=== PATIENT | female | born 1985 | race Asian ===

== ENCOUNTER 2017-12-30 11:10 | Inpatient (IN) | payer BC ==
[2017-12-30] VITALS (29 sets, daily range): BP systolic 99–132; BP diastolic 53–87; PULSE 76–94; TEMP 97.6–98.7
[~2017-12-30] VITALS: Ht 157.6 cm; Wt 78.2 kg
[2017-12-30] MEDS ORDERED: PRENATAL1 TA7 PO (12:47)
[2017-12-30 14:51] LABS: BASO % 0.3 % (0.0-2.0); EOS # 0.1 (0.0-0.7); EOS % 0.6 % (0-4.0); GRAN # 9.5 (1.4-6.5); GRAN % 67.8 % (42.2-75.2); HEMOGLOBIN 11.8 g/dl (12.5-16.0); LYMPH # 2.9 (1.2-3.4); MEAN CELL VOLUME 86 fl (80.0-100.0); MEAN CORPUSCULAR HEMOGLOBIN 29 pg (27.0-31.0); MEAN CORPUSCULAR HGB CONC 34 g/dl (33.0-37.0); MEAN PLATELET VOLUME 8.8 fl (7.4-10.4); MONO # 1.1 (0.1-0.6); MONO % 7.9 % (1.7-9.3); PLATELET COUNT 267 K/mm3 (130-400); RED BLOOD COUNT 4.07 M/mm3 (4.10-5.30); REDCELL DISTRIBUTION WIDTH-CV 16.2 % (11.5-14.5)
[2017-12-30] MEDS ORDERED: NATURAL IRON65 MG (14:56)
[2017-12-30 14:57] LABS: HEMATOCRIT 34.9 % (37.0-47.0)
[2017-12-30] MEDS ORDERED: IRON TABLETS325 MG PO (14:57)
[2017-12-31] VITALS (81 sets, daily range): BP systolic 87–1331; BP diastolic 45–80; PULSE 76–117; TEMP 97.6–98.9
[2018-01-01 04:30] VITALS: BP 105/40; PULSE 102; TEMP 98.6
[2018-01-01 07:25] LABS: BASO % 0.2 % (0.0-2.0); EOS % 0.2 % (0-4.0); GRAN # 15.4 (1.4-6.5); GRAN % 80.7 % (42.2-75.2); LYMPH # 2.2 (1.2-3.4); LYMPH % 11.4 % (20.0-51.0); MEAN CELL VOLUME 86 fl (80.0-100.0); MEAN CORPUSCULAR HGB CONC 33 g/dl (33.0-37.0); MEAN PLATELET VOLUME 8.9 fl (7.4-10.4); MONO # 1.2 (0.1-0.6); MONO % 6.1 % (1.7-9.3); PLATELET COUNT 210 K/mm3 (130-400); RED BLOOD COUNT 3.43 M/mm3 (4.10-5.30); REDCELL DISTRIBUTION WIDTH-CV 16.4 % (11.5-14.5)
[2018-01-01 07:33] LABS: HEMATOCRIT 29.6 % (37.0-47.0); HEMOGLOBIN 9.9 g/dl (12.5-16.0); MEAN CORPUSCULAR HEMOGLOBIN 29 pg (27.0-31.0)
[2018-01-01 10:00] VITALS: BP 95/56; PULSE 94; TEMP 98.4
[2018-01-01 14:18] VITALS: BP 93/56; PULSE 82; TEMP 97.8
[2018-01-01 17:42] VITALS: BP 91/57; PULSE 81; TEMP 9.9
[2018-01-01 19:45] VITALS: BP 106/57; PULSE 87; TEMP 98.5
[2018-01-02 07:55] VITALS: BP 98/47; PULSE 73; TEMP 98.9
[2018-01-02] MEDS ORDERED: IBU600 MG PO (09:53)
[2018-01-02] MEDS ORDERED: PERCOCET 325 MG1 TA2 PO (09:53)
[2018-01-02 15:27] VITALS: BP 114/64; PULSE 75; TEMP 97.6
[2018-01-02 19:30] VITALS: BP 106/55; PULSE 82; TEMP 98.6
[2018-01-03 07:00] VITALS: BP 105/50; PULSE 74; TEMP 98.5
== END 2018-01-03 17:45 | disposition home or self-care (01) | DRG 766 ==
LOC: LDR → OB 12-31 20:00
PROVIDERS: Obstetrics & Gynecology
PROC: 10D00Z1 Extraction of Products of Conception, Low, Open Approach (ICD-10-PCS; principal; 2017-12-31)
DX: O42.02 Full-term premature rupture of membranes, onset of labor within 24 hours of rupture (principal); Z3A.40 40 weeks gestation of pregnancy; Z37.0 Single live birth; O62.1 Secondary uterine inertia; O99.02 Anemia complicating childbirth; Z3A.49 Greater than 42 weeks gestation of pregnancy
CPT/HCPCS: J0690; J1885; J2270; J2370; J2400; J2540; J2550; J2590; J2795; J7120